=== PATIENT | female | born 1970 | race Asian ===

== ENCOUNTER 2021-03-25 13:15 | Emergency (ER) | payer MEDICAID ==
[~2021-03-25] VITALS: Ht 149.9 cm; Wt 72.7 kg
[2021-03-25 14:15] VITALS: BP 143/82
== END 2021-03-25 15:30 | disposition home or self-care (01) ==
LOC: ER 13:16
DX: R06.02 Shortness of breath (principal); Z20.822 Contact with and (suspected) exposure to COVID-19; R05.9 Cough, unspecified; R07.89 Other chest pain; E11.9 Type 2 diabetes mellitus without complications; R50.9 Fever, unspecified
CPT/HCPCS: 99282